=== PATIENT | male | born 1940 | race Caucasian/White ===

== ENCOUNTER 2017-12-28 14:02 | Outpatient (CLI) | payer OTHER ==
[~2017-12-28 14:02] MED LIST: GLIPIZIDE10 MG PO; GLUCOPHAGE XR500 MG PO; HYDROCHLOROTH12.5 M1 PO; IMODIUM A-D2 M2 PO; OMEPRAZOLE20 MG PO; PRILOSEC OTC20 MG PO; QUESTRAN LIGH4 G/PKT PO; SPIRIVA RESPIMAT4 G1 IH; SYMBICORT 16010.2 GM IH; VENTOLIN HFA18 GM IH
== END 2017-12-28 14:07 | disposition home or self-care (01) ==
LOC: RAD 14:02
DX: C20 Malignant neoplasm of rectum (principal); K62.5 Hemorrhage of anus and rectum; R59.0 Localized enlarged lymph nodes; Z85.038 Personal history of other malignant neoplasm of large intestine; Z93.2 Ileostomy status

== ENCOUNTER 2018-01-02 08:00 | Inpatient (IN) | payer OTHER ==
[~2018-01-02] VITALS: Ht 167.6 cm; Wt 69.9 kg
[2018-01-11] MEDS ORDERED: PROBIOTIC & AC1 EACH PO (09:22)
[2018-01-11] MEDS ORDERED: PERCOCET 5-3251 EACH PO (09:22)
[2018-01-13] MEDS ORDERED: TOPROL XL25 M1 PO (19:00)
== END 2018-01-13 19:26 | disposition home or self-care (01) | DRG 330 ==
LOC: SURH 01-05 08:00 → O/R 01-05 08:30 → SURG 01-05 08:30 → SURH 01-05 13:45 → SURG 01-05 14:48
PROVIDERS: Surgery
PROC: 0DJD8ZZ Inspection of Lower Intestinal Tract, Via Natural or Artificial Opening Endoscopic (ICD-10-PCS; 2018-01-05)
PROC: 3E0F7GC Introduction of Other Therapeutic Substance into Respiratory Tract, Via Natural or Artificial Opening (ICD-10-PCS; 2018-01-05)
PROC: 4A033R1 Measurement of Arterial Saturation, Peripheral, Percutaneous Approach (ICD-10-PCS; 2018-01-05)
PROC: 4A12X4Z Monitoring of Cardiac Electrical Activity, External Approach (ICD-10-PCS; 2018-01-05)
PROC: 0DQB4ZZ Repair Ileum, Percutaneous Endoscopic Approach (ICD-10-PCS; principal; 2018-01-05 13:45)
PROC: 3E0336Z Introduction of Nutritional Substance into Peripheral Vein, Percutaneous Approach (ICD-10-PCS; 2018-01-08)
PROC: 05H533Z Insertion of Infusion Device into Right Subclavian Vein, Percutaneous Approach (ICD-10-PCS; 2018-01-08)
PROC: B246ZZZ Ultrasonography of Right and Left Heart (ICD-10-PCS; 2018-01-11)
DX: Z43.2 Encounter for attention to ileostomy (principal); C20 Malignant neoplasm of rectum; K91.30 Postprocedural intestinal obstruction, unspecified as to partial versus complete; N17.8 Other acute kidney failure; I97.89 Other postprocedural complications and disorders of the circulatory system, not elsewhere classified; J44.9 Chronic obstructive pulmonary disease, unspecified; J45.40 Moderate persistent asthma, uncomplicated; E11.9 Type 2 diabetes mellitus without complications; D50.0 Iron deficiency anemia secondary to blood loss (chronic); G47.33 Obstructive sleep apnea (adult) (pediatric); R19.7 Diarrhea, unspecified; I13.10 Hypertensive heart and chronic kidney disease without heart failure, with stage 1 through stage 4 chronic kidney disease, or unspecified chronic kidney disease; N18.9 Chronic kidney disease, unspecified; I48.0 Paroxysmal atrial fibrillation

== ENCOUNTER 2019-06-24 06:45 | Day surgery (SDC) | payer OTHER ==
[~2019-06-24 06:45] MED LIST changes: +PERCOCET 5-3251 EACH PO; +PROBIOTIC & AC1 EACH PO; +TOPROL XL25 M1 PO
== END 2019-06-24 12:30 | disposition home or self-care (01) ==
LOC: AMB-ENDOS 06:45
DX: D12.2 Benign neoplasm of ascending colon (principal); D12.4 Benign neoplasm of descending colon